=== PATIENT | female | born 1955 ===

== ENCOUNTER 2018-04-13 08:10 | Day surgery (SDC) | payer MEDICAID ==
[2018-04-13] MEDS ORDERED: Acetaminophen-Codeine 300/30 mg Tab PO PRN (08:24)
[2018-04-13] MEDS ORDERED: Dextrose 5%/0.45% NS 1,000 ML IV SCH (08:30)
[2018-04-13] MEDS ORDERED: Propofol 10 mg/ml Inj (20 ML) ONE (09:57)
[2018-04-13] MEDS ORDERED: Succinylcholine Chloride 20 mg/ml Syr (5 ml) IV ONE (09:58)
[2018-04-13] MEDS ORDERED: Oxymetazoline 0.05% Nasal Spray (30 ml) NS ONE (09:59)
[2018-04-13] MEDS ORDERED: Lidocaine/Epinephrine 1% 1:100000 10 ML IJ ONE (09:59)
[2018-04-13] MEDS ORDERED: Clindamycin 600mg/50ml NS 600 MG/50 ML BAG IVPB ONE (10:14)
[2018-04-13] MEDS ORDERED: HYDROmorphone 0.5 mg/0.5 ml ISec IVP PRN (10:37)
[2018-04-13 10:52] VITALS: O2SAT 100
[2018-04-13 11:45] VITALS: RESP 16
[2018-04-13 12:44] VITALS: BP 125/74; PULSE 66; TEMP 97.8
--- NOTE | 2018-04-13 19:08 | OP ---
PROCEDURE DATE: 04/13/2018 PREOPERATIVE DIAGNOSIS: Left nasal mass. POSTOPERATIVE DIAGNOSIS: Left nasal mass. PROCEDURE: Left nasal mass biopsy. SIGNIFICANT FINDINGS: Left nasal mass. DESCRIPTION OF PROCEDURE: The patient was brought into the room, placed in supine position, anesthesia was initiated through an ET tube. Afrin-soaked pledgets were inserted into the nasal cavity, remained there for five minutes and removed. The patient was draped in the usual manner. A 0-degree scope was inserted into the nasal cavity on the left and the nasal mass was noted. Multiple biopsies were taken. Bleeding was controlled using suction cautery. The patient was taken off anesthesia and taken to recovery room in a stable manner. Adolfo Benjamin MD
== END 2018-04-13 12:27 | disposition home or self-care (01) ==
LOC: C.SDS 08:10
PROVIDERS: ATTEND Otolaryngology
DX: J34.9 Unspecified disorder of nose and nasal sinuses (principal)
CPT/HCPCS: 30100; 82948; 88307; J2001; J2704; J3010; J7030